=== PATIENT | male | born 1960 | race Caucasian/White ===

== ENCOUNTER 2020-03-29 23:07 | Emergency (ER) | payer OTHER ==
[2020-03-29] MEDS ORDERED: TETANUS/DIPHTHERIA/PERTUSSIS 0.5 ML SYRINGE IM ONE (23:37)
[2020-03-29] MEDS ORDERED: BUFFERED LIDOCAINE 10 ML SYRINGE IU ONE (23:38)
--- NOTE | 2020-03-29 23:41 | ED Physician Documentation ---
History of Present Illness - Stated complaint Stated Complaint: FINGER LAC - Chief complaint Chief Complaint: Laceration - History obtained from History obtained from: Patient - Additonal information Additional information: The patient presents with complaints of injury to his left index finger He was using a box knife and while cutting through some material the knife slipped and struck his left nondominant index finger. He sustained an approximately 1 cm laceration on the lateral aspect of the distal phalanx. He denies numbness or tingling distally. He reports normal range of motion.He had no other injuries. He does not recall when his last tetanus immunization was. Review of Systems Cardiac: denies: Chest pain / pressure Respiratory: denies: Dyspnea, Cough Skin: reports: Laceration (s) PD PAST MEDICAL HISTORY - Past Medical History Past Medical History: Yes Cardiovascular: Hypertension Respiratory: COPD - Past Surgical History Past Surgical History: Yes Ortho: Spine surgery HEENT: Other - Present Medications Home Medications: Ambulatory Orders Medication Instructions Recorded Confirmed Fluticasone [Flonase] 1 spray NS BID 03/29/20 03/29/20 Fluticasone/Salmeterol [Advair 2 puffs IH BID 03/29/20 03/29/20 250-50 Diskus] Lisinopril [Zestril] 10 mg PO DAILY 03/29/20 03/29/20 - Allergies Allergies/Adverse Reactions: Allergies Allergy/AdvReac Type Severity Reaction Status Date / Time No Known Drug Allergies Allergy Verified 03/29/20 23:10 - Social History Does the pt smoke?: No Smoking Status: Never smoker Does the pt drink ETOH?: Yes Does the pt have substance abuse?: No - Immunizations Immunizations are current?: No Immunizations: TDAP >10years/unknown - POLST Patient has POLST: No PD ED PE NORMAL - Vitals Vital signs reviewed: Yes - General General: No acute distress - HEENT HEENT: PERRL - Neck Neck: Supple, no meningeal sign - Cardiac Cardiac: RRR, No murmur - Respiratory Respiratory: Clear bilaterally - Abdomen Abdomen: Normal bowel sounds, Soft, Non tender, Non distended - Derm Derm: Warm and dry, Other (1 centimeter linear laceration of the left index finger distal phalanx. He exhibits normal tendon function. He is neurovascularly intact distally.) Results - Vitals Vitals: Vital Signs - 24 hr 03/29/20 03/30/20 23:10 00:12 Temperature 36.6 C 36.5 C Heart Rate 40 L 73 Respiratory 16 16 Rate Blood Pressure 128/94 H 132/89 H O2 Saturation 96 96 Oxygen O2 Source Room air Procedures - Laceration (location) Finger Wound type: Linear Neurovascular status: Sensory intact, Motor intact, Vascular intact Tendon involvement: Tendon intact Anesthesia: Lidocaine 1% Wound Preparation: Chlorhexadine, Irrigated copiously NS, Wound explored, To the base Skin layer closure: Nylon, Size #-0 - enter number (4-O), Sutures - enter # (4) Other: Patient tolerated well, No complications, Neurovascular intact, Dressing applied, Tetanus booster given Complexity: Simple PD MEDICAL DECISION MAKING - ED course Complexity details: d/w patient ED course: The patient's wound was cleansed extensively with saline and chlorhexidine soap. Subsequently, the wound was repaired as noted. I discussed appropriate wound care, symptoms and signs of infection and encouraged him to seek immediate medical attention if these were to develop. Otherwise, he is to follow-up with his PCP in 10 days for suture removal. Departure - Departure Disposition: 01 Home, Self Care Clinical Impression: Laceration Condition: Stable Instructions: Diphtheria/Tetanus Toxoids Pertussis Vaccine DTP injection, ED Laceration Hand Follow-Up: HARSHA RODRIGUEZ DO [Primary Care Provider] - 04/09/20 (For suture removal.) Discharge Date/Time: 03/30/20 00:17
[2020-03-29] MEDS ORDERED: BACITRACIN ZINC OINT 1 PACKET TOP STA (23:58)
[2020-03-30 00:14] VITALS: BP 132/89
== END 2020-03-30 00:17 | disposition home or self-care (01) ==
LOC: ED 23:07
DX: S61.211A Laceration without foreign body of left index finger without damage to nail, initial encounter (principal); W26.0XXA Contact with knife, initial encounter; Y93.89 Activity, other specified; I10 Essential (primary) hypertension
CPT/HCPCS: 12001; 90471; 90715; 99282; 99283; A9270

== ENCOUNTER 2023-04-17 15:07 | Outpatient (CLI) | payer OTHER | END 2023-04-17 15:08 | disposition home or self-care (01) | LOC: RT 15:07 | PROVIDERS: ATTEND Nurse Practitioner Family | DX: R06.00 Dyspnea, unspecified (principal); Z87.09 Personal history of other diseases of the respiratory system | CPT/HCPCS: 94010; 94727; 94729 ==